=== PATIENT | female | born 1945 | race Caucasian/White ===

== ENCOUNTER 2022-05-17 12:30 | Outpatient (CLI) | payer MEDICARE, BC | END 2022-05-17 12:31 | LOC: PET 12:30 | PROVIDERS: ATTEND Internal Medicine Hematology & Oncology | DX: C34.12 Malignant neoplasm of upper lobe, left bronchus or lung (principal); J90 Pleural effusion, not elsewhere classified; E06.9 Thyroiditis, unspecified | CPT/HCPCS: 78815; A9552 ==